=== PATIENT | female | born 1975 | race Caucasian/White ===

== ENCOUNTER 2018-10-08 08:40 | Outpatient (CLI) | payer OTHER ==
--- NOTE | 2018-10-08 14:15 | RAD ---
LIMITED UPPER GI: DATE: 10/08/2018. HISTORY: Gastroesophageal reflux and vomiting. History of prior bariatric surgery. The patient has gastric b and in place. Worsening gastroesophageal reflux. FLUOROSCOPY: Total fluoroscopy time is 2.7 minutes, total dose is 791 mcg m2. FINDINGS: Single swallow of thin liquid barium was administered during the exam. The esophagus demonstrates di latation, and there is a gastric band noted in place which is oriented in the appropriate direction. However, contrast demonstrates to and fro motion proximal to the gastric band with only a very small amount of contrast passing into the stomach. Contrast persisted in the distal esophagus for 1 hour and 30 minutes with 1 hour and 30 minute delayed image demonstrating contrast slowly traversing into the stomach, but there is persistent contrast within the distal esophagus on the 1 hour and 30 minute image. As a result, the stomach was unable to be adequately evaluated on this exam as no additional contrast was administered due to persisting contrast in the esophagus. [employer] AP view of the abdomen demonstrates gastric band in place as described above with surgical clip s overlying the pelvis. Nonspecific bowel gas pattern is present. IMPRESSION: 1. Dilated esophagus with contrast persisting in the distal esophagus for 1 hour and 30 minutes prox imal to the level of the gastric band which is oriented in the appropriate direction. Only a small a mount of contrast intermittently passed into the stomach. 2. The above findings were discussed with Dr. Castellon on 10/08/2018 at 1109 hours. CODE CR POS: MADI
== END 2018-10-08 08:41 | disposition home or self-care (01) ==
LOC: RAD 08:40
PROVIDERS: ATTEND Physician Assistant Medical
DX: K21.9 Gastro-esophageal reflux disease without esophagitis (principal); R11.10 Vomiting, unspecified; Z98.84 Bariatric surgery status; K22.8 Other specified diseases of esophagus
CPT/HCPCS: 74241

== ENCOUNTER 2019-03-24 09:09 | Outpatient (CLI) | payer OTHER ==
--- NOTE | 2019-03-24 09:20 | RAD ---
EXAM: Chest 2 views: HISTORY: Cough COMPARISON: None. FINDINGS: There is a normal-sized cardiomediastinal silhouette. There is no evidence of consolidation, mass, or pleural effusion. The bones are unremarkable. IMPRESSION: No evidence of acute cardiopulmonary disease
== END 2019-03-24 09:10 | disposition home or self-care (01) ==
LOC: BICRAD 09:09
PROVIDERS: ATTEND Family Medicine
DX: R06.02 Shortness of breath (principal)
CPT/HCPCS: 36415; 71046; 80053; 81001; 84443; 85025; 85379

== ENCOUNTER 2019-03-24 14:22 | Emergency (ER) | payer OTHER ==
--- NOTE | 2019-03-24 14:59 | CT ---
EXAM: CTA of the chest HISTORY: Dyspnea; recent laparoscopic band removal COMPARISON: None TECHNIQUE: Multiple contiguous axial images were obtained a CTA of the chest with contrast per pulmon summer embolism protocol. 3-D oblique MIP reformats and direct coronal reformats were performed. FINDINGS: HEART: Normal in size without focal cardiac abnormality. PULMONARY ARTERIES: Normal in caliber without filling defects to suggest pulmonary emboli. MEDIASTINUM: No hilar or mediastinal lymphadenopathy. LUNGS: No focal infiltrates or masses. PLEURAL SPACE: No pleural effusion or pneumothorax. CHEST WALL SOFT TISSUES: Unremarkable VISUALIZED OSSEOUS STRUCTURES: Unremarkable VISUALIZED SUBDIAPHRAGMATIC STRUCTURES: Postsurgical changes in the stomach. Otherwise unremarkable. IMPRESSION: No evidence of pulmonary thromboembolism
[2019-03-24] MEDS ORDERED: Ondansetron PF 4 MG/2 ML Vial ONE (15:09)
[2019-03-24] MEDS ORDERED: ISOVUE-370 76%-LOCM 1 ML ONE (17:16)
== END 2019-03-24 16:18 | disposition home or self-care (01) ==
LOC: ERS 14:22
DX: E86.0 Dehydration (principal); Z79.899 Other long term (current) drug therapy
CPT/HCPCS: 71275; 96361; 96374; J2405; Q9966